=== PATIENT | female | born 1995 | race Two or more races ===

== ENCOUNTER 2024-04-27 03:11 | Emergency (ER) | payer MEDICAID, OTHER ==
[~2024-04-27] VITALS: Ht 167.6 cm; Wt 86.2 kg
[2024-04-27] MEDS ORDERED: MORPHINE SULFATE INJ 4 MG/ML DISP.SYRIN ONE (03:46)
[2024-04-27] MEDS: MORPHINE SULFATE INJ 2 MG/ML DISP.SYRIN IM ONE (03:55)
[2024-04-27] MEDS ORDERED: HYDR-4303 PO (06:53)
[2024-04-27] MEDS ORDERED: IBUP-1955 PO (06:53)
[2024-04-27 07:58] VITALS: BP 100/61; TEMP 98.1; O2SAT 97
== END 2024-04-27 07:58 | disposition home or self-care (01) ==
LOC: ER 03:12
DX: S82.892A Other fracture of left lower leg, initial encounter for closed fracture (principal); M25.572 Pain in left ankle and joints of left foot; W18.39XA Other fall on same level, initial encounter; Y93.89 Activity, other specified; Y92.89 Other specified places as the place of occurrence of the external cause; Y99.8 Other external cause status
CPT/HCPCS: 29515; 73610; 96372; 99283; J2270